=== PATIENT | female | born 1965 | race African-American/Black ===

== ENCOUNTER 2016-07-27 10:19 | Inpatient (IN) | payer BC ==
[2016-07-27 11:04] VITALS: BMI 29.5
--- NOTE | 2016-07-27 12:06 | HP ---
Admission [facility] - [facility] Chief Complaint: I need to solidify my recovery. Allergies/Adverse Reactions: Allergies Allergy/AdvReac Type Severity Reaction Status Date / Time No Known Allergies Allergy Verified 07/27/16 11:45 History of Present Illness: pt is a 51yr old female with a history of crack/cocaine dependence seeking detox for treatment. Exam Limitations: No Limitations - Ebola screening Have you traveled outside of the country in the last 21 days: No Have you had contact with anyone from an Ebola affected area: No Have you been sick,other than usual withdrawal symptoms: No Do you have a fever: No - Review of Systems Constitutional: Loss of Appetite, Unintentional Wgt. Loss EENT: reports: No Symptoms Reported Respiratory: reports: No Symptoms reported Cardiac: reports: No Symptoms Reported GI: reports: Poor Appetite, Poor Fluid Intake : reports: No Symptoms Reported Musculoskeletal: reports: See HPI Integumentary: reports: No Symptoms Reported Neuro: reports: No Symptoms reported Endocrine: reports: No Symptoms Reported Hematology: reports: No Symptoms Reported Psychiatric: reports: Judgement Intact, Mood/Affect Appropiate, Orientated x3, Agitated, Anxious Other Systems: Reviewed and Negative Patient History - Patient Medical History Hx Anemia: No Hx Asthma: No Hx Chronic Obstructive Pulmonary Disease (COPD): No Hx Cancer: No Hx Cardiac Disorders: No Hx Congestive Heart Failure: No Hx Hypertension: No Hx Hypercholesterolemia: No Hx Pacemaker: No HX Cerebrovascular Accident: No Hx Seizures: No Hx Dementia: No Hx Diabetes: No Hx Gastrointestinal Disorders: No Hx Liver Disease: No Hx Genitourinary Disorders: No Hx Sexually Transmitted Disorders: No (syphillis treated a year. ) Hx Renal Disease (ESRD): No Hx Thyroid Disease: No Hx Human Immunodeficiency Virus (HIV): No Hx Hepatitis C: No Hx Depression: Yes Hx Suicide Attempt: No (denies) Hx Bipolar Disorder: Yes Hx Schizophrenia: No - Patient Surgical History Past Surgical History: No Hx Neurologic Surgery: No Hx Cataract Extraction: No Hx Cardiac Surgery: No Hx Lung Surgery: No Hx Breast Surgery: No Hx Breast Biopsy: No Hx Abdominal Surgery: No Hx Appendectomy: No Hx Cholecystectomy: No Hx Genitourinary Surgery: No Hx Section: Yes (in 2010) Hx Orthopedic Surgery: No Anesthesia Reaction: No - PPD History Previous Implant?: Yes Documented Results: Positive w/o proof Implanted On Prior R Admission?: No PPD to be Administered?: No - Reproductive History Last Menstrual Period: 07/24/16 Patient : No - Smoking Cessation Smoking history: Current every day smoker Have you smoked in the past 12 months: Yes Aproximately how many cigarettes per day: 20 Hx Chewing Tobacco Use: No Initiated information on smoking cessation: Yes 'Breaking Loose' booklet given: 07/27/16 - Substance & Tx. History Hx Alcohol Use: No Hx Substance Use: Yes Substance Use Type: Cocaine Hx Substance Use Treatment: Yes - Substances Abused Crack Route: Smoking Frequency: Daily Amount used: $200 Age of first use: 22 Date of Last Use: 07/26/16 Family Disease History - Family Disease History Family History: Denies Admission Physical Exam [facility] - Vital Signs Vital Signs: Vital Signs - 24 hr 07/27/16 11:01 Temperature 95.8 F L Pulse Rate 76 Respiratory 18 Rate Blood Pressure 156/92 - Physical General Appearance: Yes: Appropriately Dressed, Moderate Distress, Anxious HEENTM: Yes: Normal Voice Respiratory: Yes: Lungs Clear, Normal Breath Sounds, No Respiratory Distress Neck: Yes: No masses,lesions,Nodules Breast: Yes: Within Normal Limits Cardiology: Yes: Regular Rhythm, Regular Rate, S1, S2 Abdominal: Yes: Normal Bowel Sounds Genitourinary: Yes: Within Normal Limits Back: Yes: Normal Inspection Musculoskeletal: Yes: full range of Motion Extremities: Yes: Normal Capillary Refill, Normal Inspection, Non-Tender, Tremors Neurological: Yes: Fully Oriented, Alert, Normal Response Integumentary: Yes: Normal Color Lymphatic: Yes: Within Normal Limits - Diagnostic (1) Crack cocaine use Current Visit: Yes Status: Chronic (2) Nicotine dependence Current Visit: Yes Status: Chronic Qualifiers: Nicotine product type: cigarettes Substance use status: uncomplicated Qualified Code(s): F17.210 - Nicotine dependence, cigarettes, uncomplicated (3) PPD positive Current Visit: Yes Status: Chronic Cleared for Admission [facility] - Detox or Rehab [facility] Level of Care: Medically Managed Claeared for Rehab Admission: Yes [facility] Breath Alcohol Content Breath Alcohol Content: 0 Urine Pregancy Test - Result Urine Test Results: Negative- NO Line Present Urine Drug Screen - Results Drug Screen Negative: No Urine Drug Screen Results: LISA-Cocaine
[2016-07-27] MEDS ORDERED: MAGNESIUM HYDROX 2400MG/30ML ORAL SUSPENSION 30 ML CUP PO PRN (12:13)
[2016-07-27] MEDS ORDERED: diphenhydrAMINE HCL 50 MG CAPSULE PO PRN (12:13)
[2016-07-27] MEDS ORDERED: guaiFENesin/D-METHORPHAN HB 10 ML UNIT-DOSE CUPS PO PRN (12:13)
[2016-07-27] MEDS ORDERED: MENTHOL/PHENOL 1 EACH UD MM PRN (12:13)
[2016-07-27] MEDS ORDERED: P-EPHED 60MG/TRIPROLIDI 2.5MG TABLET PO PRN (12:13)
[2016-07-27] MEDS ORDERED: MAGNESIUM CITRATE 300 ML BOTTLE PO PRN (12:13)
[2016-07-27] MEDS ORDERED: ACETAMINOPHEN 325 MG TABLET (FP) PO PRN (12:13)
[2016-07-27] MEDS ORDERED: MAG HYDROX/AL HYDROX/SIMETH 30 ML UNIT-DOSE CUP PO PRN (12:13)
[2016-07-27] MEDS ORDERED: hydrOXYzine PAMOATE 50 MG CAPSULE (FP) PO PRN (12:13)
[2016-07-27] MEDS ORDERED: PNEUMOC 13-VAL CONJ-DIP CRM/PF 0.5 ML DISP.SYRIN IM ONE (13:19)
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
[2016-07-27] MEDS: amLODIPine BESYLATE 5 MG TABLET (FP) PO SCH (16:45)
[2016-07-27] MEDS: NICOTINE POLACRILEX 4 MG GUM BUC PRN (20:12)
[2016-07-27] MEDS: LURASIDONE HCL 40 MG TABLET PO SCH (21:11)
[2016-07-27] MEDS: THIAMINE HCL 100 MG TABLET (FP) PO SCH (21:11)
[2016-07-27] MEDS: IBUPROFEN 400 MG TABLET (FP) PO PRN (21:43)
[2016-07-27 23:05] LABS: MCH 25.4 pg (25.7-33.7); MCHC 30.8 g/dl (32.0-36.0); MEAN CELL VOLUME 82.4 fl (80-96); MEAN PLT VOLUME 8.4 fl (7.5-11.1); PLATELET COUNT 290 K/MM3 (134-434); WHITE BLOOD COUNT 4.6 K/mm3 (4.0-10.0)
[2016-07-27 23:11] LABS: URINE APPEARANCE SLCLOUDY; URINE BILIRUBIN NEGATIVE (NEGATIVE); URINE COLOR LTYELLOW; URINE GLUCOSE (UA) NEGATIVE (NEGATIVE); URINE KETONE NEGATIVE (NEGATIVE); URINE LEUK ESTERASE NEGATIVE (NEGATIVE); URINE NITRITE NEGATIVE (NEGATIVE); URINE PROTEIN NEGATIVE (NEGATIVE); URINE UROBILINOGEN NEGATIVE E.U./dl (0.2-1.0)
[2016-07-27 23:14] LABS: URINE BLOOD 3+ (NEGATIVE)
[2016-07-27 23:22] LABS: URINE MUCUS RARE; URINE RBC 8 /hpf (0-3); URINE WBC 1 /hpf (3-5)
[2016-07-27 23:27] LABS: ALBUMIN 3.3 g/dl (3.4-5.0); BILIRUBIN,TOTAL 0.1 mg/dL (0.2-1.0); CALCIUM 8.6 mg/dL (8.5-10.1); TOT PROT 7.7 g/dl (6.4-8.2)
[2016-07-28 10:32] LABS: HIV 1 & 2 AB NEGATIVE; HIV 1 AGp24 NEGATIVE
[2016-07-28] MEDS: NICOTINE 21 MG/24 HOURS TOPICAL PATCH TD SCH (10:36)
[2016-07-28] MEDS: amLODIPine BESYLATE 5 MG TABLET (FP) PO SCH (10:37)
[2016-07-28] MEDS: PRENATAL VITAMINS W/ FOLIC ACID TABLET (FP) PO SCH (10:37)
[2016-07-28] MEDS: NICOTINE POLACRILEX 4 MG GUM BUC PRN ×4 (10:41→21:30)
[2016-07-28 10:59] LABS: MCHC 31.5 g/dl (32.0-36.0); MEAN CELL VOLUME 82.7 fl (80-96); MEAN PLT VOLUME 8.2 fl (7.5-11.1); PLATELET COUNT 274 K/MM3 (134-434); RDW 15.7 % (11.6-15.6); WHITE BLOOD COUNT 4.3 K/mm3 (4.0-10.0)
[2016-07-28 11:21] LABS: ALBUMIN 3.3 g/dl (3.4-5.0); ALK PHOS 90 U/L (45-117); ANION GAP 7 (8-16); BILIRUBIN,TOTAL 0.4 mg/dL (0.2-1.0); CALCIUM 8.7 mg/dL (8.5-10.1); CO2 27 mmol/L (21-32); CREATININE 0.9 mg/dL (0.55-1.02); GLUCOSE,RANDOM 86 mg/dL (74-106); SGOT/AST 15 U/L (15-37); SGPT/ALT 20 U/L (12-78); TOT PROT 7.8 g/dl (6.4-8.2)
[2016-07-28] MEDS ORDERED: INFLUENZA VACCINE 45 MCG/0.5 ML (MDV 16-17) IM ONE (12:00)
[2016-07-28] MEDS ORDERED: PNEUMOCOCCAL 23 VACCINE 0.5 ML VIAL IM ONE (12:00)
[2016-07-28] MEDS: IBUPROFEN 400 MG TABLET (FP) PO PRN (12:46)
[2016-07-28] MEDS: THIAMINE HCL 100 MG TABLET (FP) PO SCH (21:30)
[2016-07-28] MEDS: LURASIDONE HCL 40 MG TABLET PO SCH (21:32)
[2016-07-29] MEDS: IBUPROFEN 400 MG TABLET (FP) PO PRN ×2 (06:10→22:47)
[2016-07-29] MEDS: PRENATAL VITAMINS W/ FOLIC ACID TABLET (FP) PO SCH (09:54)
[2016-07-29] MEDS: amLODIPine BESYLATE 5 MG TABLET (FP) PO SCH (09:54)
[2016-07-29] MEDS: NICOTINE 21 MG/24 HOURS TOPICAL PATCH TD SCH (09:54)
[2016-07-29] MEDS: NICOTINE POLACRILEX 4 MG GUM BUC PRN ×4 (09:56→21:21)
[2016-07-29] MEDS ORDERED: LIDOCAINE VISCOUS 2% ORAL/TOP 20 ML UNIT-DOSE CUP MM PRN (18:03)
[2016-07-29] MEDS: LURASIDONE HCL 40 MG TABLET PO SCH (21:21)
[2016-07-29] MEDS: THIAMINE HCL 100 MG TABLET (FP) PO SCH (21:21)
[2016-07-30] MEDS: amLODIPine BESYLATE 5 MG TABLET (FP) PO SCH (10:10)
[2016-07-30] MEDS: PRENATAL VITAMINS W/ FOLIC ACID TABLET (FP) PO SCH (10:10)
[2016-07-30] MEDS: NICOTINE 21 MG/24 HOURS TOPICAL PATCH TD SCH (10:10)
[2016-07-30] MEDS: NICOTINE POLACRILEX 4 MG GUM BUC PRN ×2 (10:11→21:24)
[2016-07-30] MEDS: THIAMINE HCL 100 MG TABLET (FP) PO SCH (21:23)
[2016-07-30] MEDS: LURASIDONE HCL 40 MG TABLET PO SCH (21:23)
[2016-07-31] MEDS: NICOTINE 21 MG/24 HOURS TOPICAL PATCH TD SCH (10:20)
[2016-07-31] MEDS: amLODIPine BESYLATE 5 MG TABLET (FP) PO SCH (10:20)
[2016-07-31] MEDS: PRENATAL VITAMINS W/ FOLIC ACID TABLET (FP) PO SCH (10:20)
[2016-07-31] MEDS: NICOTINE POLACRILEX 4 MG GUM BUC PRN ×2 (10:21→21:30)
[2016-07-31] MEDS: THIAMINE HCL 100 MG TABLET (FP) PO SCH (21:30)
[2016-07-31] MEDS: LURASIDONE HCL 40 MG TABLET PO SCH (22:21)
[2016-08-01] MEDS: NICOTINE 21 MG/24 HOURS TOPICAL PATCH TD SCH (10:49)
[2016-08-01] MEDS: PRENATAL VITAMINS W/ FOLIC ACID TABLET (FP) PO SCH (10:50)
[2016-08-01] MEDS: amLODIPine BESYLATE 5 MG TABLET (FP) PO SCH (10:50)
[2016-08-01] MEDS: NICOTINE POLACRILEX 4 MG GUM BUC PRN ×2 (10:50→21:31)
--- NOTE | 2016-08-01 14:42 | PN ---
S Progress Note Note: PT. HAS A SMALL BOIL RT. AXILLA,DENTAL ABSCESS RT. LOWER MOLAR AREA AND RASH RT. CHEEK. Vital Signs - 8 hr 08/01/16 08/01/16 07:13 09:25 Temperature 97.6 F Pulse Rate 76 81 Respiratory 18 Rate Blood Pressure 132/79 119/74 Laboratory Last Values WBC 4.3 K/mm3 (4.0-10.0) 07/28/16 06:30 RBC 5.54 M/mm3 (3.60-5.2) H 07/28/16 06:30 Hgb 14.4 GM/dL (10.7-15.3) 07/28/16 06:30 Hct 45.9 % (32.4-45.2) H 07/28/16 06:30 MCV 82.7 fl (80-96) 07/28/16 06:30 MCHC 31.5 g/dl (32.0-36.0) L 07/28/16 06:30 RDW 15.7 % (11.6-15.6) H 07/28/16 06:30 Plt Count 274 K/MM3 (134-434) 07/28/16 06:30 MPV 8.2 fl (7.5-11.1) 07/28/16 06:30 Sodium 141 mmol/L (136-145) 07/28/16 06:30 Potassium 4.0 mmol/L (3.5-5.1) 07/28/16 06:30 Chloride 107 mmol/L (98-107) 07/28/16 06:30 Carbon Dioxide 27 mmol/L (21-32) 07/28/16 06:30 Anion Gap 7 (8-16) L 07/28/16 06:30 BUN 7 mg/dL (7-18) 07/28/16 06:30 Creatinine 0.9 mg/dL (0.55-1.02) 07/28/16 06:30 Creat Clearance w eGFR > 60 (>60) 07/28/16 06:30 Random Glucose 86 mg/dL (74-106) 07/28/16 06:30 Calcium 8.7 mg/dL (8.5-10.1) 07/28/16 06:30 Total Bilirubin 0.4 mg/dL (0.2-1.0) D 07/28/16 06:30 AST 15 U/L (15-37) 07/28/16 06:30 ALT 20 U/L (12-78) 07/28/16 06:30 Alkaline Phosphatase 90 U/L (45-117) 07/28/16 06:30 Total Protein 7.8 g/dl (6.4-8.2) 07/28/16 06:30 Albumin 3.3 g/dl (3.4-5.0) L 07/28/16 06:30 Urine Color Ltyellow 07/27/16 14:00 Urine Appearance Slcloudy 07/27/16 14:00 Urine pH 7.0 (5.0-8.0) 07/27/16 14:00 Ur Specific Iaeger 1.014 (1.001-1.035) 07/27/16 14:00 Urine Protein Negative (NEGATIVE) 07/27/16 14:00 Urine Glucose (UA) Negative (NEGATIVE) 07/27/16 14:00 Urine Ketones Negative (NEGATIVE) 07/27/16 14:00 Urine Blood 3+ (NEGATIVE) H 07/27/16 14:00 Urine Nitrite Negative (NEGATIVE) 07/27/16 14:00 Urine Bilirubin Negative (NEGATIVE) 07/27/16 14:00 Urine Urobilinogen Negative E.U./dl (0.2-1.0) 07/27/16 14:00 Ur Leukocyte Esterase Negative (NEGATIVE) 07/27/16 14:00 Urine RBC 8 /hpf (0-3) 07/27/16 14:00 Urine WBC 1 /hpf (3-5) 07/27/16 14:00 Ur Epithelial Cells Few /hpf (FEW) 07/27/16 14:00 Urine Mucus Rare 07/27/16 14:00 RPR Titer Reactive 1:1 (NONREACTIVE) H 07/28/16 06:30 T.pallidum Ab (MHA) Reactive (NONREACTIVE) 07/28/16 06:30 HIV 1&2 Antibody Screen Negative 07/27/16 12:00 HIV P24 Antigen Negative 07/27/16 12:00 LABS NOTED MOUTH : BROKEN & DECAYED TEETH RT LOWER JAW SKIN : RASH RT. CHEEK RT. AXILLA : SMALL TENDER BOIL DX. : BOIL RT. AXILLA DENTAL ABSCESS RASH RT. CHEEK P : AUGMENTIN 875MG BID HC 1% QID BACITRACIN OIN'T BID
[2016-08-01] MEDS ORDERED: AMOX TR/POT CLAV 875MG/125MG TABLETS (FP) PO ONE (15:15)
[2016-08-01] MEDS: AMOX TR/POT CLAV 875MG/125MG TABLETS (FP) PO SCH (18:02)
[2016-08-01] MEDS: HYDROCORTISONE 1% TOPICAL CREAM 30 GM TUBE TP SCH ×2 (18:03→21:32)
[2016-08-01] MEDS: LURASIDONE HCL 40 MG TABLET PO SCH (18:04)
[2016-08-01] MEDS: THIAMINE HCL 100 MG TABLET (FP) PO SCH (21:31)
[2016-08-01] MEDS: BACITRACIN 0.9 GM PACKET TP SCH (21:32)
[2016-08-02] MEDS: AMOX TR/POT CLAV 875MG/125MG TABLETS (FP) PO SCH ×2 (07:41→17:26)
[2016-08-02] MEDS: amLODIPine BESYLATE 5 MG TABLET (FP) PO SCH (10:19)
[2016-08-02] MEDS: BACITRACIN 0.9 GM PACKET TP SCH ×2 (10:19→21:17)
[2016-08-02] MEDS: PRENATAL VITAMINS W/ FOLIC ACID TABLET (FP) PO SCH (10:19)
[2016-08-02] MEDS: NICOTINE 21 MG/24 HOURS TOPICAL PATCH TD SCH (10:20)
[2016-08-02] MEDS: HYDROCORTISONE 1% TOPICAL CREAM 30 GM TUBE TP SCH ×4 (10:20→21:19)
[2016-08-02] MEDS: NICOTINE POLACRILEX 4 MG GUM BUC PRN ×2 (10:22→21:19)
[2016-08-02] MEDS: LURASIDONE HCL 40 MG TABLET PO SCH (17:28)
[2016-08-02] MEDS: THIAMINE HCL 100 MG TABLET (FP) PO SCH (21:17)
[2016-08-03] MEDS: AMOX TR/POT CLAV 875MG/125MG TABLETS (FP) PO SCH ×2 (07:23→16:34)
[2016-08-03] MEDS: amLODIPine BESYLATE 5 MG TABLET (FP) PO SCH (10:00)
[2016-08-03] MEDS: NICOTINE 21 MG/24 HOURS TOPICAL PATCH TD SCH (10:00)
[2016-08-03] MEDS: PRENATAL VITAMINS W/ FOLIC ACID TABLET (FP) PO SCH (10:00)
[2016-08-03] MEDS: LOPERAMIDE HCL 2 MG CAPSULE PO PRN (10:00)
[2016-08-03] MEDS: BACITRACIN 0.9 GM PACKET TP SCH ×2 (10:01→21:47)
[2016-08-03] MEDS: HYDROCORTISONE 1% TOPICAL CREAM 30 GM TUBE TP SCH ×4 (10:01→21:47)
[2016-08-03] MEDS: NICOTINE POLACRILEX 4 MG GUM BUC PRN (10:48)
[2016-08-03] MEDS: IBUPROFEN 400 MG TABLET (FP) PO PRN (16:34)
[2016-08-03] MEDS: LURASIDONE HCL 40 MG TABLET PO SCH (18:25)
[2016-08-03] MEDS: THIAMINE HCL 100 MG TABLET (FP) PO SCH (21:47)
[2016-08-04] MEDS: AMOX TR/POT CLAV 875MG/125MG TABLETS (FP) PO SCH ×2 (07:13→17:54)
[2016-08-04] MEDS: BACITRACIN 0.9 GM PACKET TP SCH ×2 (10:31→21:04)
[2016-08-04] MEDS: HYDROCORTISONE 1% TOPICAL CREAM 30 GM TUBE TP SCH ×4 (10:31→21:04)
[2016-08-04] MEDS: NICOTINE 21 MG/24 HOURS TOPICAL PATCH TD SCH (10:31)
[2016-08-04] MEDS: PRENATAL VITAMINS W/ FOLIC ACID TABLET (FP) PO SCH (10:32)
[2016-08-04] MEDS: amLODIPine BESYLATE 5 MG TABLET (FP) PO SCH (10:32)
[2016-08-04] MEDS: NICOTINE POLACRILEX 4 MG GUM BUC PRN ×2 (10:33→21:05)
[2016-08-04] MEDS: LOPERAMIDE HCL 2 MG CAPSULE PO PRN (11:11)
[2016-08-04] MEDS: LURASIDONE HCL 40 MG TABLET PO SCH (17:54)
[2016-08-04] MEDS: THIAMINE HCL 100 MG TABLET (FP) PO SCH (21:04)
[2016-08-05] MEDS: LOPERAMIDE HCL 2 MG CAPSULE PO PRN ×3 (04:20→21:42)
[2016-08-05] MEDS: AMOX TR/POT CLAV 875MG/125MG TABLETS (FP) PO SCH ×2 (07:34→17:48)
[2016-08-05] MEDS: BACITRACIN 0.9 GM PACKET TP SCH ×2 (10:22→21:40)
[2016-08-05] MEDS: PRENATAL VITAMINS W/ FOLIC ACID TABLET (FP) PO SCH (10:22)
[2016-08-05] MEDS: HYDROCORTISONE 1% TOPICAL CREAM 30 GM TUBE TP SCH ×4 (10:22→21:40)
[2016-08-05] MEDS: amLODIPine BESYLATE 5 MG TABLET (FP) PO SCH (10:22)
[2016-08-05] MEDS: NICOTINE 21 MG/24 HOURS TOPICAL PATCH TD SCH (10:23)
[2016-08-05] MEDS: NICOTINE POLACRILEX 4 MG GUM BUC PRN ×2 (10:25→13:52)
[2016-08-05] MEDS: LURASIDONE HCL 40 MG TABLET PO SCH (18:30)
[2016-08-05] MEDS: THIAMINE HCL 100 MG TABLET (FP) PO SCH (21:40)
[2016-08-06] MEDS: AMOX TR/POT CLAV 875MG/125MG TABLETS (FP) PO SCH ×2 (08:38→17:25)
[2016-08-06] MEDS: amLODIPine BESYLATE 5 MG TABLET (FP) PO SCH (10:22)
[2016-08-06] MEDS: PRENATAL VITAMINS W/ FOLIC ACID TABLET (FP) PO SCH (10:23)
[2016-08-06] MEDS: LOPERAMIDE HCL 2 MG CAPSULE PO PRN ×2 (10:23→18:54)
[2016-08-06] MEDS: NICOTINE 21 MG/24 HOURS TOPICAL PATCH TD SCH (10:23)
[2016-08-06] MEDS: BACITRACIN 0.9 GM PACKET TP SCH ×2 (10:24→21:35)
[2016-08-06] MEDS: HYDROCORTISONE 1% TOPICAL CREAM 30 GM TUBE TP SCH ×4 (10:24→21:35)
[2016-08-06] MEDS: NICOTINE POLACRILEX 4 MG GUM BUC PRN (10:26)
[2016-08-06] MEDS: LURASIDONE HCL 40 MG TABLET PO SCH (18:53)
[2016-08-06] MEDS: THIAMINE HCL 100 MG TABLET (FP) PO SCH (21:35)
[2016-08-07] MEDS: AMOX TR/POT CLAV 875MG/125MG TABLETS (FP) PO SCH ×2 (07:05→18:06)
[2016-08-07] MEDS: HYDROCORTISONE 1% TOPICAL CREAM 30 GM TUBE TP SCH ×4 (10:09→21:26)
[2016-08-07] MEDS: BACITRACIN 0.9 GM PACKET TP SCH ×2 (10:09→21:25)
[2016-08-07] MEDS: NICOTINE 21 MG/24 HOURS TOPICAL PATCH TD SCH (10:10)
[2016-08-07] MEDS: amLODIPine BESYLATE 5 MG TABLET (FP) PO SCH (10:10)
[2016-08-07] MEDS: PRENATAL VITAMINS W/ FOLIC ACID TABLET (FP) PO SCH (10:11)
[2016-08-07] MEDS: NICOTINE POLACRILEX 4 MG GUM BUC PRN ×2 (10:12→18:08)
[2016-08-07] MEDS: LOPERAMIDE HCL 2 MG CAPSULE PO PRN (10:12)
[2016-08-07] MEDS: LURASIDONE HCL 40 MG TABLET PO SCH (18:26)
[2016-08-07] MEDS: THIAMINE HCL 100 MG TABLET (FP) PO SCH (21:25)
[2016-08-08] MEDS: AMOX TR/POT CLAV 875MG/125MG TABLETS (FP) PO SCH (07:27)
[2016-08-08] MEDS: LOPERAMIDE HCL 2 MG CAPSULE PO PRN (07:27)
[2016-08-08] MEDS: NICOTINE 21 MG/24 HOURS TOPICAL PATCH TD SCH (10:15)
[2016-08-08] MEDS: amLODIPine BESYLATE 5 MG TABLET (FP) PO SCH (10:15)
[2016-08-08] MEDS: PRENATAL VITAMINS W/ FOLIC ACID TABLET (FP) PO SCH (10:15)
[2016-08-08] MEDS: BACITRACIN 0.9 GM PACKET TP SCH ×2 (10:15→21:29)
[2016-08-08] MEDS: HYDROCORTISONE 1% TOPICAL CREAM 30 GM TUBE TP SCH ×4 (10:16→21:30)
[2016-08-08] MEDS: NICOTINE POLACRILEX 4 MG GUM BUC PRN (10:17)
[2016-08-08] MEDS: LURASIDONE HCL 40 MG TABLET PO SCH (17:50)
[2016-08-08] MEDS: THIAMINE HCL 100 MG TABLET (FP) PO SCH (21:30)
[2016-08-09] MEDS: NICOTINE POLACRILEX 4 MG GUM BUC PRN (08:56)
[2016-08-09] MEDS: amLODIPine BESYLATE 5 MG TABLET (FP) PO SCH (10:08)
[2016-08-09] MEDS: PRENATAL VITAMINS W/ FOLIC ACID TABLET (FP) PO SCH (10:08)
[2016-08-09] MEDS: NICOTINE 21 MG/24 HOURS TOPICAL PATCH TD SCH (10:08)
[2016-08-09] MEDS: BACITRACIN 0.9 GM PACKET TP SCH ×2 (10:08→21:29)
[2016-08-09] MEDS: HYDROCORTISONE 1% TOPICAL CREAM 30 GM TUBE TP SCH ×4 (10:09→21:29)
[2016-08-09] MEDS: LURASIDONE HCL 40 MG TABLET PO SCH (17:55)
[2016-08-09] MEDS: THIAMINE HCL 100 MG TABLET (FP) PO SCH (21:29)
[2016-08-10] MEDS ORDERED: PT OWN MED DRAWER 7, Y5N ONE ×2 (08:34→11:41)
[2016-08-10] MEDS: HYDROCORTISONE 1% TOPICAL CREAM 30 GM TUBE TP SCH ×4 (10:07→21:26)
[2016-08-10] MEDS: PRENATAL VITAMINS W/ FOLIC ACID TABLET (FP) PO SCH (10:07)
[2016-08-10] MEDS: BACITRACIN 0.9 GM PACKET TP SCH ×2 (10:07→21:26)
[2016-08-10] MEDS: amLODIPine BESYLATE 5 MG TABLET (FP) PO SCH (10:08)
[2016-08-10] MEDS: NICOTINE 21 MG/24 HOURS TOPICAL PATCH TD SCH (10:08)
[2016-08-10] MEDS: NICOTINE POLACRILEX 4 MG GUM BUC PRN (10:10)
[2016-08-10] MEDS: LURASIDONE HCL 40 MG TABLET PO SCH (18:40)
[2016-08-10] MEDS: THIAMINE HCL 100 MG TABLET (FP) PO SCH (21:26)
[2016-08-11] MEDS: NICOTINE 21 MG/24 HOURS TOPICAL PATCH TD SCH (10:32)
[2016-08-11] MEDS: amLODIPine BESYLATE 5 MG TABLET (FP) PO SCH (10:32)
[2016-08-11] MEDS: BACITRACIN 0.9 GM PACKET TP SCH ×2 (10:32→21:42)
[2016-08-11] MEDS: PRENATAL VITAMINS W/ FOLIC ACID TABLET (FP) PO SCH (10:32)
[2016-08-11] MEDS: HYDROCORTISONE 1% TOPICAL CREAM 30 GM TUBE TP SCH ×4 (10:33→21:42)
[2016-08-11] MEDS: LURASIDONE HCL 40 MG TABLET PO SCH (18:41)
[2016-08-11] MEDS: THIAMINE HCL 100 MG TABLET (FP) PO SCH (21:42)
[2016-08-12] MEDS: HYDROCORTISONE 1% TOPICAL CREAM 30 GM TUBE TP SCH ×4 (10:09→21:32)
[2016-08-12] MEDS: BACITRACIN 0.9 GM PACKET TP SCH ×2 (10:09→21:31)
[2016-08-12] MEDS: NICOTINE 21 MG/24 HOURS TOPICAL PATCH TD SCH (10:09)
[2016-08-12] MEDS: amLODIPine BESYLATE 5 MG TABLET (FP) PO SCH (10:10)
[2016-08-12] MEDS: PRENATAL VITAMINS W/ FOLIC ACID TABLET (FP) PO SCH (10:10)
[2016-08-12] MEDS: NICOTINE POLACRILEX 4 MG GUM BUC PRN (10:11)
[2016-08-12] MEDS: LURASIDONE HCL 40 MG TABLET PO SCH (17:43)
[2016-08-12] MEDS: THIAMINE HCL 100 MG TABLET (FP) PO SCH (21:31)
[2016-08-13] MEDS ORDERED: PT OWN MED DRAWER 7, Y5N ONE ×2 (08:18→16:18)
[2016-08-13] MEDS: amLODIPine BESYLATE 5 MG TABLET (FP) PO SCH (10:13)
[2016-08-13] MEDS: PRENATAL VITAMINS W/ FOLIC ACID TABLET (FP) PO SCH (10:13)
[2016-08-13] MEDS: NICOTINE 21 MG/24 HOURS TOPICAL PATCH TD SCH (10:14)
[2016-08-13] MEDS: BACITRACIN 0.9 GM PACKET TP SCH ×2 (10:14→21:28)
[2016-08-13] MEDS: NICOTINE POLACRILEX 4 MG GUM BUC PRN (10:15)
[2016-08-13] MEDS: HYDROCORTISONE 1% TOPICAL CREAM 30 GM TUBE TP SCH ×4 (10:15→21:29)
[2016-08-13] MEDS: LURASIDONE HCL 40 MG TABLET PO SCH (17:25)
[2016-08-13] MEDS: THIAMINE HCL 100 MG TABLET (FP) PO SCH (21:28)
[2016-08-14] MEDS: amLODIPine BESYLATE 5 MG TABLET (FP) PO SCH (10:21)
[2016-08-14] MEDS: PRENATAL VITAMINS W/ FOLIC ACID TABLET (FP) PO SCH (10:21)
[2016-08-14] MEDS: BACITRACIN 0.9 GM PACKET TP SCH ×2 (10:21→21:44)
[2016-08-14] MEDS: HYDROCORTISONE 1% TOPICAL CREAM 30 GM TUBE TP SCH ×4 (10:21→21:44)
[2016-08-14] MEDS: NICOTINE 21 MG/24 HOURS TOPICAL PATCH TD SCH (10:22)
[2016-08-14] MEDS: NICOTINE POLACRILEX 4 MG GUM BUC PRN (10:23)
[2016-08-14] MEDS: IBUPROFEN 400 MG TABLET (FP) PO PRN (13:05)
[2016-08-14] MEDS: LURASIDONE HCL 40 MG TABLET PO SCH (18:50)
[2016-08-14] MEDS: THIAMINE HCL 100 MG TABLET (FP) PO SCH (21:44)
[2016-08-15] MEDS: PRENATAL VITAMINS W/ FOLIC ACID TABLET (FP) PO SCH (10:31)
[2016-08-15] MEDS: BACITRACIN 0.9 GM PACKET TP SCH ×2 (10:31→22:43)
[2016-08-15] MEDS: HYDROCORTISONE 1% TOPICAL CREAM 30 GM TUBE TP SCH ×4 (10:32→22:43)
[2016-08-15] MEDS: amLODIPine BESYLATE 5 MG TABLET (FP) PO SCH (10:32)
[2016-08-15] MEDS: NICOTINE 21 MG/24 HOURS TOPICAL PATCH TD SCH (10:32)
[2016-08-15] MEDS: NICOTINE POLACRILEX 4 MG GUM BUC PRN (10:33)
[2016-08-15] MEDS ORDERED: PT OWN MED DRAWER 7, Y5N ONE (17:53)
[2016-08-15] MEDS: LURASIDONE HCL 40 MG TABLET PO SCH (18:24)
[2016-08-15] MEDS: THIAMINE HCL 100 MG TABLET (FP) PO SCH (22:43)
[2016-08-16] MEDS ORDERED: PT OWN MED DRAWER 7, Y5N ONE (08:47)
[2016-08-16] MEDS: PRENATAL VITAMINS W/ FOLIC ACID TABLET (FP) PO SCH (10:18)
[2016-08-16] MEDS: BACITRACIN 0.9 GM PACKET TP SCH ×2 (10:18→21:33)
[2016-08-16] MEDS: amLODIPine BESYLATE 5 MG TABLET (FP) PO SCH (10:18)
[2016-08-16] MEDS: NICOTINE 21 MG/24 HOURS TOPICAL PATCH TD SCH (10:20)
[2016-08-16] MEDS: NICOTINE POLACRILEX 4 MG GUM BUC PRN (10:20)
[2016-08-16] MEDS: HYDROCORTISONE 1% TOPICAL CREAM 30 GM TUBE TP SCH ×4 (10:20→21:33)
[2016-08-16] MEDS: LURASIDONE HCL 40 MG TABLET PO SCH (18:58)
[2016-08-16] MEDS: THIAMINE HCL 100 MG TABLET (FP) PO SCH (21:33)
[2016-08-17 06:56] VITALS: BP 124/78; PULSE 75; TEMP 97.2
== END 2016-08-17 06:52 | disposition home or self-care (01) | DRG 772 ==
LOC: YASAS 10:19 → Y3E 11:13
PROVIDERS: ADMIT Psychiatry & Neurology Psychiatry; ATTEND Psychiatry & Neurology Psychiatry
PROC: HZ42ZZZ Group Counseling for Substance Abuse Treatment, Cognitive-Behavioral (ICD-10-PCS; principal; 2016-07-27)
DX: F14.20 Cocaine dependence, uncomplicated (principal); F17.210 Nicotine dependence, cigarettes, uncomplicated; F31.30 Bipolar disorder, current episode depressed, mild or moderate severity, unspecified; F43.10 Post-traumatic stress disorder, unspecified; L02.828 Furuncle of other sites; L02.421 Furuncle of right axilla; K02.9 Dental caries, unspecified; S02.5XXD Fracture of tooth (traumatic), subsequent encounter for fracture with routine healing; X58.XXXD Exposure to other specified factors, subsequent encounter; R21 Rash and other nonspecific skin eruption; Z87.42 Personal history of other diseases of the female genital tract
CPT/HCPCS: 36415; 71020-TC; 80053; 81003; 81015; 85027; 86593; 86780; 87389; 90732; 93005; 93010; G0009